=== PATIENT | female | born 1975 | race Caucasian/White ===

== ENCOUNTER 2020-06-09 15:21 | Observation (INO) ==
[2020-06-09] MEDS ORDERED: Acetaminophen IV 1,000 MG/100 ML INFUS..BTL IVPB ONE (17:46)
[2020-06-09] MEDS ORDERED: Ondansetron 4 MG/2 ML VIAL IVP PRN ×3 (17:56→22:07)
[2020-06-09] MEDS ORDERED: Naloxone 0.4 MG/ML INJ IVP PRN ×2 (17:56→22:07)
[2020-06-09] MEDS ORDERED: Ketorolac 15 MG/ML VIAL IVP PRN ×2 (17:56→22:07)
[2020-06-09] MEDS ORDERED: Ringers Solution, Lactated 1,000 ML IVC SCH (18:00)
[2020-06-09 18:54] LABS: Red Cell Distribution Width 13.2 % (11.5-14.5)
[2020-06-09 18:56] LABS: Basophils % 0.1 %; Hematocrit 35.3 % (35.3-44.9); Hemoglobin 12.3 g/dL (11.5-15.4); Immature Granulocytes % 1.5 % (0-4); Immature Platelets 5.7 % (1.1-6.1); Lymphocytes # 0.4 K/mcL (0.6-4.6); Lymphocytes % 4.1 %; Mean Corpuscular HGB Conc 34.8 g/dL (31.6-35.5); Mean Corpuscular Hemoglobin 32.8 pg (28.0-33.3); Mean Corpuscular Volume 94.1 fL (83.0-100.0); Mean Platelet Volume 10.5 fL (9.4-12.4); Monocytes # 0.5 K/mcL (0.0-1.3); Monocytes % 5.3 %; Red Blood Count 3.75 M/mcL (3.82-4.97); White Blood Count 9.5 K/mcL (4.3-11.1)
[2020-06-09 19:05] LABS: BUN/Creatinine Ratio 17 (6-26); Blood Urea Nitrogen 17 mg/dL (6-20); Calcium 8.1 mg/dL (8.6-10.3); Carbon Dioxide 23 mEq/L (23-29); Chloride 101 mEq/L (98-107); Glucose 149 mg/dL (70-105); Osmolality,Calculated 280 (280-300); Potassium 3.3 mEq/L (3.5-5.1); Sodium 133 mEq/L (136-145); eGFR For African Americans > 60 (> 60); eGFR For Non-African Americans > 60 (> 60)
[2020-06-09 19:16] LABS: Bacteria,Urine Few per hpf (None-Few); Bilirubin,Urine Negative (Negative); Blood,Urine Small (Negative); Clarity,Urine Turbid (Clear); Color,Urine Yellow (Yellow); Glucose,Urine (UA) Normal (Normal); Ketones,Urine Negative (Negative); Leukocyte Esterase,Urine Negative (Negative); Mucus,Urine Few per lpf (None-Few); Nitrite,Urine Negative (Negative); Protein,Urine 200 mg/dL (Neg-Trace); RBC,Urine 0-3 per hpf (0-3); Specific Gravity,Urine 1.022 (1.010-1.025); Squamous Epithelial Cell,Urine Few per hpf (None-Few)
[2020-06-09 19:33] LABS: Neutrophils # 8.5 K/mcL (1.6-8.9); Platelet Count 76 K/mcL (140-400)
[2020-06-09 19:34] LABS: Platelet Estimate Decreased (Normal)
[2020-06-09] MEDS ORDERED: *HR* Propofol 200 MG/20 ML VIAL IVP ONE (19:49)
[2020-06-09] MEDS ORDERED: *HR* Midazolam HCl 2 MG/2 ML VIAL ONE (19:49)
[2020-06-09] MEDS ORDERED: *HR* FentaNYL (PF) 100 MCG/2 ML VIAL ONE (19:49)
[2020-06-09] MEDS ORDERED: *HR* Promethazine 25 MG/ML VIAL IVP PRN (20:38)
[2020-06-09] MEDS ORDERED: *HR* Labetalol 20 MG/4 ML SYRINGE IVP PRN (20:38)
[2020-06-09] MEDS ORDERED: *HR* HYDROmorphone (PF) 1 MG/ML SYRINGE IVP PRN (20:38)
[2020-06-09] MEDS ORDERED: Acetaminophen IV 1,000 MG/100 ML INFUS..BTL ONE (20:40)
[2020-06-09] MEDS ORDERED: Dexamethasone 4 MG/ML VIAL ONE (20:42)
[2020-06-09] MEDS ORDERED: Lidocaine -MPF 2% 2 ML VIAL ONE (20:42)
[2020-06-09] MEDS ORDERED: *HR* Succinylcholine 200 MG/10 ML VIAL IVP ONE (20:42)
[2020-06-09] MEDS: Ringers Solution, Lactated 1,000 ML IVC SCH (22:12)
[2020-06-10 04:33] LABS: Basophils % 0.1 %; Red Cell Distribution Width 13.2 % (11.5-14.5)
[2020-06-10 04:36] LABS: Hematocrit 34.3 % (35.3-44.9); Immature Granulocytes % 1.7 % (0-4); Immature Platelets 7.3 % (1.1-6.1); Lymphocytes # 0.3 K/mcL (0.6-4.6); Lymphocytes % 3.4 %; Mean Corpuscular Hemoglobin 33.6 pg (28.0-33.3); Mean Corpuscular Volume 96.1 fL (83.0-100.0); Mean Platelet Volume 11.3 fL (9.4-12.4); Monocytes # 0.3 K/mcL (0.0-1.3); Monocytes % 3.4 %; Neutrophils # 7.6 K/mcL (1.6-8.9); Red Blood Count 3.57 M/mcL (3.82-4.97); Segmented Neutrophils % 91.4 %; White Blood Count 8.3 K/mcL (4.3-11.1)
[2020-06-10 04:51] LABS: BUN/Creatinine Ratio 18 (6-26); Blood Urea Nitrogen 16 mg/dL (6-20); Calcium 8.3 mg/dL (8.6-10.3); Carbon Dioxide 22 mEq/L (23-29); Chloride 103 mEq/L (98-107); Glucose 194 mg/dL (70-105); Osmolality,Calculated 286 (280-300); Potassium 3.8 mEq/L (3.5-5.1); Sodium 135 mEq/L (136-145); eGFR For African Americans > 60 (> 60); eGFR For Non-African Americans > 60 (> 60)
[2020-06-10 05:05] LABS: Platelet Count 74 K/mcL (140-400)
[2020-06-10] MEDS ORDERED: cefTRIAXone 1,000 MG in Water for inj. (sterile) 10 ML IVP SCH (09:00)
[2020-06-10] MEDS: cefTRIAXone 1,000 MG in Water for inj. (sterile) 10 ML IVP SCH (09:26)
[2020-06-10] MEDS: Ringers Solution, Lactated 1,000 ML IVC SCH (10:47)
[2020-06-10] MEDS: *HR* Heparin 5,000 UNIT/ML VIAL SQ SCH (18:14)
[2020-06-11 05:04] LABS: Hematocrit 31.7 % (35.3-44.9); Hemoglobin 10.9 g/dL (11.5-15.4); Mean Corpuscular HGB Conc 34.4 g/dL (31.6-35.5); Mean Corpuscular Volume 96.1 fL (83.0-100.0); Platelet Count 110 K/mcL (140-400); Red Cell Distribution Width 13.2 % (11.5-14.5); White Blood Count 9.9 K/mcL (4.3-11.1)
[2020-06-11 05:29] LABS: BUN/Creatinine Ratio 25 (6-26); Blood Urea Nitrogen 19 mg/dL (6-20); Calcium 8.2 mg/dL (8.6-10.3); Carbon Dioxide 22 mEq/L (23-29); Chloride 104 mEq/L (98-107); Glucose 149 mg/dL (70-105); Osmolality,Calculated 283 (280-300); Potassium 3.6 mEq/L (3.5-5.1); Sodium 134 mEq/L (136-145); eGFR For African Americans > 60 (> 60); eGFR For Non-African Americans > 60 (> 60)
[2020-06-11] MEDS: *HR* Heparin 5,000 UNIT/ML VIAL SQ SCH (05:29)
[2020-06-11] MEDS: cefTRIAXone 1,000 MG in Water for inj. (sterile) 10 ML IVP SCH (08:05)
[2020-06-11 10:31] VITALS: BP 144/96
== END 2020-06-11 11:44 | disposition home or self-care (01) ==
LOC: 3ANU → SUATTDRO 17:41
PROVIDERS: ADMIT Internal Medicine; ATTEND Internal Medicine